=== PATIENT | male | born 1995 | race African-American/Black ===

== ENCOUNTER 2023-06-25 03:55 | Emergency (ER) | payer MEDICAID ==
[~2023-06-25] VITALS: Ht 177.8 cm; Wt 73.0 kg
[2023-06-25 03:57] VITALS: BP 125/84; PULSE 98; RESP 20; TEMP 98; O2SAT 99
== END 2023-06-25 04:46 | disposition left against medical advice (07) ==
LOC: ER 03:55
DX: Z53.21 Procedure and treatment not carried out due to patient leaving prior to being seen by health care provider (principal)
CPT/HCPCS: 99281

== ENCOUNTER 2024-01-22 12:53 | Emergency (ER) | payer OTHER ==
[~2024-01-22] VITALS: Ht 172.7 cm; Wt 75.5 kg
[2024-01-22 13:04] VITALS: BP 128/76; PULSE 90; TEMP 98.9; O2SAT 98
[2024-01-22] MEDS: KETOROLAC 30MG/ML VIAL IM ONE (15:21)
[2024-01-22] MEDS: DIPHENHYDRAMINE 50MG/ML VIAL IM ONE (15:21)
[2024-01-22] MEDS: PROCHLORPERAZINE 10MG/2ML VIAL IM ONE (15:22)
[2024-01-22] MEDS ORDERED: IBUP-2030 MT (16:56)
[2024-01-22] MEDS ORDERED: METO10TA3 MT (16:56)
[2024-01-22 17:00] VITALS: RESP 19
== END 2024-01-22 15:17 | disposition home or self-care (01) ==
LOC: ER 12:53
DX: R51.9 Headache, unspecified (principal)
CPT/HCPCS: 70450; 96372; 99285; J1200; J1885; J0780; Z7610

== ENCOUNTER 2025-02-14 03:22 | Emergency (ER) | payer SELFPAY ==
[~2025-02-14] VITALS: Ht 172.7 cm; Wt 73.0 kg
[~2025-02-14 03:22] MED LIST: IBUP-2030 MT; METO10TA3 MT
[2025-02-14 03:26] VITALS: O2SAT 100
[2025-02-14] MEDS ORDERED: KETO10TA2 MT (04:00)
[2025-02-14] MEDS ORDERED: SULF1TAB48 MT (04:00)
[2025-02-14] MEDS ORDERED: CEPH500T MT (04:00)
[2025-02-14] MEDS ORDERED: LIDO-53 TP (04:00)
[2025-02-14] MEDS: LIDOCAINE 5% PATCH TOP SCH (04:13)
[2025-02-14] MEDS: ACETAMINOPHEN 325MG TABLET PO ONE (04:13)
[2025-02-14] MEDS: KETOROLAC 30MG/ML VIAL IM ONE (04:13)
[2025-02-14 04:28] VITALS: BP 109/58; PULSE 76; RESP 14; TEMP 36.7; O2SAT 99
== END 2025-02-14 04:48 | disposition home or self-care (01) ==
LOC: ER 03:54
DX: S21.111A Laceration without foreign body of right front wall of thorax without penetration into thoracic cavity, initial encounter (principal); Z48.00 Encounter for change or removal of nonsurgical wound dressing; Z76.0 Encounter for issue of repeat prescription; W26.0XXA Contact with knife, initial encounter; Y93.89 Activity, other specified; Y92.89 Other specified places as the place of occurrence of the external cause; Y99.8 Other external cause status
CPT/HCPCS: 96372; 99283; J1885; Z7610

== ENCOUNTER 2025-03-09 21:51 | Emergency (ER) | payer MEDICAID ==
[~2025-03-09] VITALS: Ht 177.8 cm; Wt 73.0 kg
[~2025-03-09 21:51] MED LIST changes: +CEPH500T MT; +KETO10TA2 MT; +LIDO-53 TP; +SULF1TAB48 MT
[2025-03-09 22:27] VITALS: O2SAT 99
[2025-03-10 01:04] VITALS: BP 105/67; PULSE 71; RESP 12; TEMP 36.5; O2SAT 99
== END 2025-03-10 01:07 | disposition home or self-care (01) ==
LOC: ER 21:51
DX: S21.111D Laceration without foreign body of right front wall of thorax without penetration into thoracic cavity, subsequent encounter (principal); X58.XXXD Exposure to other specified factors, subsequent encounter
CPT/HCPCS: 99281

== ENCOUNTER 2025-06-07 08:09 | Emergency (ER) | payer MEDICAID ==
[~2025-06-07] VITALS: Ht 177.8 cm; Wt 70.0 kg
[2025-06-07 08:14] VITALS: O2SAT 97
[2025-06-07 08:17] VITALS: BP 107/52; PULSE 81; RESP 16; TEMP 36.9; O2SAT 99
== END 2025-06-07 08:36 | disposition home or self-care (01) ==
LOC: ER 08:09
DX: S01.81XD Laceration without foreign body of other part of head, subsequent encounter (principal); X58.XXXD Exposure to other specified factors, subsequent encounter
CPT/HCPCS: 99282; Z7610; 99281